=== PATIENT | female | born 1965 | race Caucasian/White ===

== ENCOUNTER 2018-08-25 07:46 | Day surgery (SDC) | payer OTHER ==
[~2018-08-25] VITALS: Ht 172.7 cm; Wt 92.7 kg
[2018-08-25 08:14] VITALS: Ht 172.7 cm; Wt 92.7 kg
--- NOTE | 2018-08-25 08:49 | PREAC ---
Date/Time of Note Date/Time of Note DATE: 08/25/18 TIME: 08:48 Anesthesia Eval and Record Evaluation Time Pre-Procedure Interview DATE: 08/25/18 TIME: 08:48 Age 52 Sex female NPO: 8 hrs Preoperative diagnosis screening for colon cancer Planned procedure colonoscopy Past Medical History Past Medical History: Includes Musculoskeletal: Other (hx left arm surgery, has plates in left arm ) GI: Obesity (bmi 31) Surgery & Anesthesia Issues No known issue Meds Anticoagulation: No Beta Jessica within 24 hr: No Reason Beta Jessica not given: Pt. not on B-Jessica Reported Medications [None] No Conflict Check 08/25/18 Meds reviewed: Yes (NONE) Allergies Coded Allergies: No Known Allergy (Unverified , 08/25/18) Allergies Reviewed: Yes Labs/Studies Labs Reviewed: Other (n/a) test: N/A Pre-procedure Exam Airway: Adequate mouth opening, Adequate thyromental dist Mallampati: Mallampati II Teeth: Normal Lung: Normal Heart: Normal ASA Physical Status ASA physical status: 2 Emergency: None Planned Anesthetic General/MAC: MAC Planned Pain Management Parenteral pain med Pre-operative Attestations Prior to commencing anesthesia and surgery, the patient was re-evaluated, there was verification of: *The patient's identity *The results of appropriate recent lab work and preoperative vital signs *The above evaluation not changing prior to induction *Anesthetic plan, risk benefits, alternative and complications discussed with patient/family; questions answered; patient/family understands, accepts and wishes to proceed. MARISA LIVINGSTON Aug 25, 2018 08:49
[2018-08-25] MEDS ORDERED: PROPOFOL 40 ML ONE (09:00)
[2018-08-25 09:02] VITALS: BP 116/77; PULSE 75; RESP 20
--- NOTE | 2018-08-25 09:45 | PAC ---
Date/Time of Note Date/Time of Note DATE: 08/25/18 TIME: 09:44 Post-Anesthesia Notes Post-Anesthesia Note Last documented vital signs post, BP 106/60 hr 81 rr 16 spo2 98% temp 98. Activity: WNL Respiratory function: WNL Cardiovascular function: WNL Mental status: Baseline Pain reasonably controlled: Yes Hydration appropriate: Yes Nausea/Vomiting absent: Yes MARISA LIVINGSTON Aug 25, 2018 09:45
[2018-08-25 10:03] VITALS: BP 121/78; PULSE 61; RESP 20
== END 2018-08-25 12:06 | disposition home or self-care (01) ==
LOC: GIL 07:46
PROVIDERS: ATTEND Internal Medicine Gastroenterology
DX: Z12.11 Encounter for screening for malignant neoplasm of colon (principal); D12.6 Benign neoplasm of colon, unspecified
CPT/HCPCS: 45380; 88305; Z7610